=== PATIENT | male | born 1975 | race Caucasian/White ===

== ENCOUNTER 2023-04-14 08:05 | Outpatient (CLI) | payer OTHER, SELFPAY ==
--- NOTE | 2023-04-14 08:25 | US_ITS ---
WS: [id number] ULTRASOUND SOFT TISSUES RIGHT neck. HISTORY: 1.7 CM OVOID DENSITY ON THE R UPPER NECK/? CALCIFIED LYMPH NO COMPARISON: None available. TECHNIQUE: 2-D and color Doppler imaging is submitted. Prior imaging study which revealed possible mass along the RIGHT neck is not available for review. Along the anterior RIGHT neck there is a hypoechoic ovoid mass which is very likely a lymph node funmilayo uring 9 x 5 x 16 mm. Normal central fatty hilum. US/US soft tissue head neck [id number] IMPRESSION: 1. No neck mass identified by ultrasound of the benign-appearing lymph node. 2. The prior imaging study that initiated this examination is not available fo r review. That study was likely performed at another institution.
== END 2023-04-14 08:06 | disposition home or self-care (01) ==
PROVIDERS: PCP Nurse Practitioner; Visit Provider Nurse Practitioner
DX: R22.1 Localized swelling, mass and lump, neck (principal)
CPT/HCPCS: 76536

== ENCOUNTER → 2023-07-27 09:46 | Outpatient (BNVA) | payer OTHER, SELFPAY | PROVIDERS: PCP Nurse Practitioner; Visit Provider Internal Medicine Rheumatology | DX: Z79.899 Other long term (current) drug therapy (principal); M19.90 Unspecified osteoarthritis, unspecified site; Z11.59 Encounter for screening for other viral diseases; M45.6 Ankylosing spondylitis lumbar region; Z11.1 Encounter for screening for respiratory tuberculosis; M48.10 Ankylosing hyperostosis [Forestier], site unspecified; M25.50 Pain in unspecified joint; K75.81 Nonalcoholic steatohepatitis (NASH); M54.50 Low back pain, unspecified; G89.29 Other chronic pain | CPT/HCPCS: 72072; 72100; 72202; 73130; 80076; 82565; 85025; 85651; 86140; 86200; 86431; 86480; 86704; 86803; 86812; 87340; 99204 ==

== ENCOUNTER → 2023-07-28 08:57 | Outpatient (BNVA) | payer OTHER, SELFPAY | PROVIDERS: PCP Nurse Practitioner; Referring Provider Internal Medicine Rheumatology; Visit Provider Specialist | DX: G56.21 Lesion of ulnar nerve, right upper limb (principal) | CPT/HCPCS: 95911 ==

== ENCOUNTER 2023-08-20 07:07 | Outpatient (CLI) | payer OTHER, SELFPAY ==
--- NOTE | 2023-08-20 07:13 | US_ITS ---
WS: [id number] Complete ABDOMINAL ULTRASOUND HISTORY: H/O CIRRHOSIS COMPARISON: None available. Liver: 15.5 cm in length. Normal size liver and echogenicity. No bile duct dilatation or mass. Portal Vein: Normal hepatopetal flow with monophasic waveform. Gallbladder: Normally distended gallbladder with stones. No wall thickening or pericholecystic fluid. CBD: 0.4 cm Pancreas: Obscured. Not well visualized. Right kidney: 10.1 cm x 4.9 x 5.0 cm. Cortex: 1.2 cm. Normal size and echogenicity. No hydronephrosis or mass. Left kidney: 9.9 cm x 5.2 cm x 4.9 cm. Cortex: 1.3 cm. Normal size kidney. Central parapelvic cyst measures 2.5 x 2.8 x 2.7 cm. Spleen: 15.3 cm in length. Spleen is enlarged. No mass. Aorta and IVC: Unremarkable abdominal aorta and IVC. Impression: 1. Cholelithiasis without acute cholecystitis. 2. Moderately enlarged spleen at 15.3 cm in length.
== END 2023-08-20 07:08 | disposition home or self-care (01) ==
PROVIDERS: PCP Nurse Practitioner; Visit Provider Nurse Practitioner
DX: K80.20 Calculus of gallbladder without cholecystitis without obstruction (principal); R16.1 Splenomegaly, not elsewhere classified; K74.60 Unspecified cirrhosis of liver
CPT/HCPCS: 76700

== ENCOUNTER → 2023-09-21 09:52 | Outpatient (BNVA) | payer OTHER, SELFPAY | PROVIDERS: PCP Nurse Practitioner; Referring Provider Nurse Practitioner; Visit Provider Surgery | DX: K80.20 Calculus of gallbladder without cholecystitis without obstruction (principal) | CPT/HCPCS: 99203 ==

== ENCOUNTER → 2023-10-13 12:33 | Outpatient (BNVA) | payer OTHER, SELFPAY | PROVIDERS: PCP Nurse Practitioner; Visit Provider Internal Medicine Rheumatology | DX: M25.50 Pain in unspecified joint (principal); K75.81 Nonalcoholic steatohepatitis (NASH); M54.50 Low back pain, unspecified; G89.29 Other chronic pain; M19.90 Unspecified osteoarthritis, unspecified site | CPT/HCPCS: 99214 ==

== ENCOUNTER 2024-02-15 06:35 | Emergency (ER) | payer OTHER, SELFPAY ==
[2024-02-15 06:39] VITALS: BP 150/89; PULSE 81; RESP 20; TEMP 37.1; O2SAT 98; BMI 33.6
--- NOTE | 2024-02-15 06:41 | XR_ITS ---
WS: [id number] Examination: XR knee RT 3V* [id number] Reason for Exam: pain Date: February 15, 2024 Comparison: None. Findings: The bone density is generally maintained. There is no destruction. There is no displaced fracture or dislocation. A small joint effusion is present. The joint spaces are not significantly narrowed. Marginal and patellar osteophytes are identified. Ch ondrocalcinosis is present. There is partial bony fusion between the fibular head and lateral tibia. Impression: There is no fracture or acute bony abnormality Arthritic changes are present with marginal spurring and chondrocalcinosis. Partial bony fusion of th e fibular head and lateral tibial are noted.
--- NOTE | 2024-02-15 06:50 | W.ED.EXTPRO ---
HPI - Extremity Problem General: Chief complaint: Extremity Problem,Nontraumatic Stated complaint: pain in R Knee Time Seen by Provider: 02/15/24 06:41 Source: patient Mode of arrival: ambulatory History of Present Illness: 48-year-old male presents emergency room with complaint of right knee pain. He states he has a history of gout he was seen yesterday at [facility] for right knee pain. He was given a steroid shot and a prescription for steroids.. Patient localizes pain to the lateral aspect of the right knee. No recent trauma or injury no previous surgery to the affected knee. He has not noticed any swelling of the joint. He has not had any fever sweats or chills. Palpation and weightbearing worsen rest improves although he states it is difficult to find a comfortable position for the knee. MD Complaint: joint pain Onset (ago): day(s) Pain Consistency: constant Location: right and knee Relieving factors: nothing Exacerbating factors: range of motion and palpation Associated symptoms: Deny chest pain, fever(s) or rash Review of Systems Const: Denies: fever(s) or chills Card: Denies: chest pain Resp: Denies: dyspnea GI: Denies: abdominal pain : Denies: dysuria, urinary frequency or urinary urgency Musc: Denies: neck pain or back pain Skin/Breast: Denies: rash PFSH ED PFSH: Medical History Inflammatory arthritis Chronic low back pain Polyarthralgia Joint pain Cirrhosis of liver SCHROEDER (nonalcoholic steatohepatitis) Gout Chronic pain syndrome Insomnia Osteoarthritis GERD (gastroesophageal reflux disease) No pertinent past medical history Surgical History History of appendectomy H/O gastric bypass History of tonsillectomy No pertinent past surgical history Family History Other Cancer Chronic kidney disease (CKD) Hyperlipidemia Hypertension Lung disease Stroke Denies family history of Rheumatoid arthritis Diabetes Lupus CAD (coronary artery disease) Social History Alcohol intake: never Substance/Drug Use: current Physical Exam Const: GENERAL APPEARANCE: cooperative and comfortable ORIENTATION/CONSCIOUSNESS: Yes awake, Yes oriented to person, Yes oriented to place and Yes oriented to time HENMT: COMMON NORMALS: normocephalic, atraumatic and hearing grossly normal bilaterally HEAD & SCALP: normocephalic and atraumatic Resp: COMMON NORMALS: normal respiratory effort, No retractions, No use of accessory muscles and clear to auscultation bilaterally AUSCULTATION: clear to auscultation bilaterally Cardio: COMMON NORMALS: regular rate, regular rhythm and No murmurs present (Cardio) RATE: regular rate RHYTHM: regular rhythm Extremity: OTHER: Examination of the right knee no joint effusion no laxity. Patient has significant discomfort of motion through the knee localizes pain to palpation of the lateral collateral ligament but no laxity of this ligament. No redness or erythema. No pain with palpation to the other portions of the knee joint. Negative Homans no pain in the medial thigh with palpation. Dorsal and plantar flexion 5 of 5 neurovascularly intact dorsalis pedis posterior tibialis pulse palpable Neuro: SENSORIUM/ORIENTATION: Yes oriented to person, Yes oriented to place and Yes oriented to time Skin: COMMON NORMALS: no rashes or lesions noted GENERAL SKIN EXAM: no rashes or lesions noted Course Vital Signs: Vital signs: Vital Signs Temperature 98.8 F 02/15/24 06:39 Pulse Rate 81 02/15/24 06:39 Respiratory Rate 20 H 02/15/24 06:39 Blood Pressure 150/89 02/15/24 06:39 Pulse Oximetry 98 02/15/24 06:39 Oxygen Delivery Me thod Room Air 02/15/24 06:39 MDM - Extremity (Nontraumatic) Medical Decision Making No acute findings on the x-ray. On exam patient has very little specific area of pain along the lateral collateral ligament. There is no joint redness or inflammation he has no fever no sign of joint infection. No significant swelling no calf pain or thigh pain suggestive of DVT.neurovascularly intact. No sign of radiculopathy. He has been treated with steroids but this began yesterday clinically I do not suspect gout although it is not completely ruled out. But with that partially treated with steroids it is possible. There is no history of trauma. He did report significant improvement when he was given ketorolac. Will discharge home with indomethacin. Discussed with the patient to use as needed and to be careful to take with food because he is if he is taking both the steroid and the indomethacin that can be very hard on the stomach. Recheck if he is not improving return if is further problem if persists may need to follow-up with his primary care doctor for advanced imaging if felt appropriate Medical Records I reviewed the patient's medical records. Lab Data I reviewed the patient's lab results. All radiology interpretation(s) finalized by discharge Discharge Plan Discharge Patient Disposition: Home Clinical Impression: Knee pain, right Condition: Stable Prescriptions: New indomethacin 50 mg capsule 50 mg PO TID Qty: 21 0RF Rx Instructions: administer with food or milk Discontinued meloxicam 15 mg tablet 15 mg PO DAILY No Action omeprazole 20 mg capsule,delayed release(DR/EC) 20 mg PO DAILY gabapentin 300 mg capsule 300 mg PO DAILY duloxetine 60 mg capsule,delayed release(DR/EC) 60 mg PO DAILY multivitamin Tablet 1 tab PO DAILY prednisone 20 mg tablet See Rx Instructions PO .COMPLEX PRN (Reason: joint pain flare) Qty: 30 1RF Rx Instructions: take 2 daily for 7 days PRN joint pain flare PO PRN; hydroxychloroquine 200 mg tablet 200 mg PO BID Qty: 180 1RF Discharge Orders: Discharge ED (Routine); Ordered 02/15/24 Ordered By: Beck Falcon Referrals: Erika Hartmann FNP [Primary Care Provider] - Discharge Diet: Usual diet Discharge Activity: Increase activity as tolerated Patient Instructions: Opioid Safety, Pain Management Activity Restrictions/Additional Instructions: Thank you for choosing [facility] for your healthcare needs today. Please realize this is an emergency room and that we are providing you with a medical screening exam and this may not be complete and all inclusive of all the testing and or work up that you may need to determine your ailment or severity of your illness. It is very important that you follow up as instructed or that you return to the Emergency Department should you have concerns or if your condition changes or worsens in any way. You are seen today for knee pain. X-ray did not show any acute fractures. Since you are partially treated with steroids may potentially be a gouty arthritis however based on your clinical exam it does not appear so. He did have relief with the ketorolac given in the emergency room you are given a prescription for indomethacin to use as needed. Would recommend you continue to complete the steroid taper. There is no sign of infection at the time you were seen.. Return to the emergency room if you have further problems. Otherwise follow-up with your primary care doctor if pain persists you may need advanced imaging. Coding Level of Care Code ED Police Crime Scene Technician for Dejah Rust
[2024-02-15] MEDS: ketorolac 30 mg/mL INJ IVP (07:10)
== END 2024-02-15 07:36 | disposition home or self-care (01) ==
PROVIDERS: Emergency Provider Family Medicine; PCP Nurse Practitioner
DX: M25.561 Pain in right knee (principal)
CPT/HCPCS: 73562; 96374; 99284; J1885

== ENCOUNTER 2024-02-23 03:24 | Emergency (ER) | payer OTHER, SELFPAY ==
[2024-02-23 03:31] VITALS: BP 138/94; PULSE 65; RESP 18; TEMP 36.4; O2SAT 95; BMI 32.1
--- NOTE | 2024-02-23 04:11 | XRR_ITS ---
PROCEDURE INFORMATION: Exam: XR Left Wrist Exam date and time: 02/23/2024 4:15 AM Age: 48 years old Clinical indication: Patient HX: C/O left wrist pain. No injury. ; Additional info: Pain/swelling TECHNIQUE: Imaging protocol: Radiologic exam of the left wrist. Views: 3 or more views. COMPARISON: No relevant prior studies available. FINDINGS: Bones/joints: There is no acute fracture or dislocation. If symptoms persist, follow-up imaging in several days may be useful to exclude an occult or subtle fracture. Mild arthritic changes seen throughout the wrist. Soft tissues: No visible/definite radiopaque soft tissue foreign body. XR/XR wrist LT min 3V* [id number] IMPRESSION: No acute fracture or dislocation.
[2024-02-23] MEDS: HYDROcodone-acetaminophen 10-325 mg Tablet 2 TAB PO (04:24)
[2024-02-23] MEDS: ketorolac 60 mg/2 mL INJ IM (04:24)
--- NOTE | 2024-02-23 04:35 | W.ED.EXTPRO ---
HPI - Extremity Problem General: Chief complaint: Extremity Problem,Nontraumatic Stated complaint: Left Wrist Pain Time Seen by Provider: 02/23/24 03:36 History of Present Illness: 48-year-old male presents emerged part with complaints of left wrist pain. He states that he woke up yesterday and started having 7 out of 10 sharp stabbing pain. He states that his continued get worse throughout the afternoon and night. He states he does have an appointment to see his [facility] physician in [place] later today and states that he just needed something for the pain to until he can be seen by his primary care provider. He states the left wrist is slightly swollen. He denies numbness or tingling to the extremity. He states he has not had difficulty like this in the past. He states he is unaware of any recent injury or trauma. Review of Systems General: Reports: 10 or more systems reviewed and unremarkable except in HPI and below Musc: Reports: extremity pain and extremity swelling [facility] ED PFSH: Medical History Inflammatory arthritis Chronic low back pain Polyarthralgia Joint pain Cirrhosis of liver SCHROEDER (nonalcoholic steatohepatitis) Gout Chronic pain syndrome Insomnia Osteoarthritis GERD (gastroesophageal reflux disease) No pertinent past medical history Surgical History History of appendectomy H/O gastric bypass History of tonsillectomy No pertinent past surgical history Family History Other Cancer Chronic kidney disease (CKD) Hyperlipidemia Hypertension Lung disease Stroke Denies family history of Rheumatoid arthritis Diabetes Lupus CAD (coronary artery disease) Social History Alcohol intake: never Substance/Drug Use: current Physical Exam Narrative: EXAM NARRATIVE: Constitutional: the patient appears well nourished and of normal development. Vital signs as documented. No acute distress at present. Alert and oriented-to person, place, time and situation. Head, eyes, ears, nose, mouth, throat: Normocephalic, atraumatic. Pupils-equal, round, reactive to light. No scleral icterus. Normal-appearing external ears. Normal appearing nasal turbinates, no drainage. No obvious oral lesions. Neck: Supple, trachea is midline, no lymphadenopathy, no jugular venous distension, thyromegaly, or carotid bruits. Carotid upstrokes are brisk bilaterally. Lungs: clear to auscultation to all lung damon. Symmetrical rise and fall of chest, no obvious signs of increased work of breathing at present. Cardiac: Regular rate and rhythm, positive S1, S2. No murmurs, rubs or gallops that I can appreciate Abdomen: Soft, non-tender to palpation, normal active bowel sounds to all quadrants. No palpable masses, no organomegaly and abdominal bruits. Extremities: 2+ pulses in the upper extremities that are equal bilaterally, 2+ pulses in the lower extremities that are equal bilaterally. Moves all extremities well, sensation to all extremities are noted. Patient's left wrist is slightly edematous, he does have normal flexion and extension. He is nontender to palpation to the anatomical snuffbox. He does have tenderness to palpation to the medial aspect of the left wrist and the area of the ulnar styloid. Capillary refill is less than 3 seconds in all extremities. He is neurovascularly intact to all extremities. Skin: Warm, dry, intact. Course ED course: I reviewed the radiographic examination and determined the need for stabilization via splint. A left wrist splint was utilized. The splint was ordered and placed by the nursing staff, under the direct supervision of myself (ER Physician. The patient's neurovascular status was evaluated and was intact before and after the application of the splint. Capillary refill was less than 3 seconds before and after the application. The patient was splinted and the most appropriate anatomical and functional position at that time. Anticipatory guidance, return precautions and red flag precautions were provided to the patient and support person. The patient/support person was advised to contact the patient's primary care provider or Orthopedic provider to make a follow-up appointment for additional evaluation and treatment within the next 3-5 days. Vital Signs: Vital signs: Vital Signs Temperature 97.5 F L 02/23/24 05:09 Pulse Rate 65 02/23/24 05:09 Respiratory Rate 18 02/23/24 05:09 Blood Pressure 138/94 02/23/24 05:09 Pulse Oximetry 95 02/23/24 05:09 Oxygen Delivery Me thod Room Air 02/23/24 03:31 MDM - Extremity (Nontraumatic) Medical Decision Making Physical exam completed and documented, I did provide the patient intramuscular Toradol and by mouth 10/325 [place] as well as a Velcro wrist splint and a x-ray of his left wrist. Medical Records I reviewed the patient's medical records. Lab Data Radiology Impressions Wrist X-Ray 02/23/24 04:11 IMPRESSION: No acute fracture or dislocation. All radiology interpretation(s) finalized by discharge Discharge Plan Discharge Patient Disposition: Home Clinical Impression: Acute pain of left wrist, Swelling of left wrist Condition: Stable Prescriptions: No Action omeprazole 20 mg capsule,delayed release(DR/EC) 20 mg PO DAILY gabapentin 300 mg capsule 300 mg PO DAILY duloxetine 60 mg capsule,delayed release(DR/EC) 60 mg PO DAILY multivitamin Tablet 1 tab PO DAILY prednisone 20 mg tablet See Rx Instructions PO .COMPLEX PRN (Reason: joint pain flare) Qty: 30 1RF Rx Instructions: take 2 daily for 7 days PRN joint pain flare PO PRN; hydroxychloroquine 200 mg tablet 200 mg PO BID Qty: 180 1RF indomethacin 50 mg capsule 50 mg PO TID Qty: 21 0RF Rx Instructions: administer with food or milk Discharge Orders: Discharge ED (Routine); Ordered 02/23/24 Ordered By: Addy Haas Referrals: Erika Hartmann, GROUP SALES COORDINATOR [Primary Care Provider] - Discharge Diet: Usual diet Discharge Activity: Limit activity as instructed Patient Instructions: Opioid Safety, Pain Management Activity Restrictions/Additional Instructions: Activity Restrictions/Additional Instructions: Thank you for choosing [facility] for your healthcare needs today. Please realize that you were seen in the Emergency Department and that we are providing you with an emergency medical screening exam and this may not be a complete and all inclusive of all the testing and or medical work-up that you may need to determine your ailment or severity of your illness. It is very important that you follow-up as instructed with your Primary care provider or Specialist for additional evaluation and to discuss your medical treatment plan. Coding Level of Care Code ED House Detective for Dejah Rust
[2024-02-23 05:09] VITALS: BP 138/94; PULSE 65; RESP 18; TEMP 36.4; O2SAT 95
== END 2024-02-23 05:00 | disposition home or self-care (01) ==
PROVIDERS: Emergency Provider Internal Medicine; PCP Nurse Practitioner
DX: M25.532 Pain in left wrist (principal); M79.89 Other specified soft tissue disorders
CPT/HCPCS: 73110; 96372; 99284; J1885

== ENCOUNTER → 2024-03-23 08:31 | Outpatient (BNVA) | payer OTHER, SELFPAY | PROVIDERS: PCP Nurse Practitioner; Visit Provider Surgery | DX: Z12.11 Encounter for screening for malignant neoplasm of colon (principal) | CPT/HCPCS: 99213 ==

== ENCOUNTER 2024-03-24 11:42 | Outpatient (CLI) | payer OTHER, SELFPAY ==
--- NOTE | 2024-03-24 11:52 | MR_ITS ---
WS: [id number] MRI RIGHT KNEE NONCONTRAST TECHNIQUE: Axial PD, coronal PD fat sat, coronal PD, sagittal PD, and sagittal PD fat-sat images obta ined. CLINICAL INFORMATION: SWELLING AND PAIN COMPARISON: None. FINDINGS: Moderate tricompartmental arthritis advanced for patient this age. Hypertrophic changes along the tierra nt line. Distal quadriceps and patella tendons are intact. Hypertrophic patella. ACL and PCL appear i ntact. Advanced chondromalacia patella with subchondral edema and cystic change involving the lateral patellar facet. Normal medial and lateral patellar retinaculum. Chondral fissuring involving the posterolateral femoral condyle with a small chondral defect. No unde rlying edema. Partial-thickness chondral defect involving the medial femoral condyle. Grade 3 chondro malacia involving the medial and lateral compartments with chronic narrowing. Medial collateral ligam ent is intact. Chronic intrasubstance signal normality involving the medial and lateral meniscus. No acute appearing meniscal tears. Peripheral extrusion of the lateral meniscus. Edema with advanced subchondral cystic change involving the tibiofibular joint with small lobulated ganglion cysts in this area. Lateral co llateral ligament appears intact. Biceps femoris appears intact. Small amount of and edema deep to th e lateral collateral ligament compatible with grade 1-2 injury. Distal LCL appears intact. Chronic ap pearing partial tear of the popliteus with diffuse intrasubstance signal normality. Tiny popliteal cy st. MR/MR knee RT wo con* [id number] IMPRESSION: 1. Moderate tricompartmental arthritis advanced for patient this age. 2. ACL and PCL appear intact. 3. Advanced degenerative changes tibiofibular articulation with subchondral cy stic change and small lobulated ganglion cysts 4. Grade 1-2 injury involving the lateral collateral ligament with fluid and e rizwan deep to the LCL. 5. Chronic appearing tear with diffuse intrasubstance signal normality involvi ng the popliteus fibers. 6. Advanced chondromalacia patella with subchondral edema and cystic change in volving the lateral patellar facet Outbridge grading: grade III: partial-thickness cartilage loss with focal ulcer ation
== END 2024-03-24 11:43 | disposition home or self-care (01) ==
LOC: RAD 11:45
PROVIDERS: PCP Nurse Practitioner; Visit Provider Nurse Practitioner
DX: M25.561 Pain in right knee (principal); M17.11 Unilateral primary osteoarthritis, right knee; M22.41 Chondromalacia patellae, right knee
CPT/HCPCS: 73721

== ENCOUNTER 2024-05-13 07:15 | Outpatient (CLI) | payer OTHER, SELFPAY ==
--- NOTE | 2024-05-13 07:24 | US_ITS ---
WS: [id number] Complete ABDOMINAL ULTRASOUND HISTORY: HCC SURVEILLANCE COMPARISON: 08/20/2023 Liver: 14.5 cm in length. Mild coarse echotexture. Surface of the liver is irregular and nodular. No hepatic mass or bile duct dilatation. Portal Vein: Normal hepatopetal flow with monophasic waveform. Gallbladder: Normally distended with cholelithiasis. No wall thickening or evidence for acute cholecy stitis at this time. CBD: 0.3 cm Pancreas: Poorly visualized. Right kidney: 10.2 cm x 4.3 x 4.9 cm. Cortex:0.9 cm. Normal size and echogenicity. No hydronephrosis or mass. Left kidney: 9.6 cm x 4.3 cm x 3.8 cm. Cortex: 0.9 cm. Normal size kidney. Reidentified is a hypoechoic mass with through transmission noted in the mid kidn ey. Mass measures 2.4 x 2.6 x 2.6 cm and is similar in size and appearance as 08/20/2023. This is prob ably a cyst but difficult to completely characterize due to its position within the kidney and abdome n. Spleen: 12.6 cm. Spleen measures slightly less in size as compared to the prior study. Aorta and IVC: Unremarkable abdominal aorta and IVC. US/US abdomen complete* [id number] Impression: 1. Cirrhotic appearing liver. No mass or bile duct dilatation. 2. Cholelithiasis without acute cholecystitis. 3. Reidentified is the hypoechoic mass in the LEFT kidney measuring 2.4 x 2.6 x 2.6 cm. Favor this is probably a cyst but difficult to completely characteriz e due to its position and internal echoes. No increase in size since 08/20/2023.
== END 2024-05-13 07:21 | disposition home or self-care (01) ==
PROVIDERS: PCP Nurse Practitioner; Visit Provider Nurse Practitioner
DX: N28.89 Other specified disorders of kidney and ureter (principal); K80.20 Calculus of gallbladder without cholecystitis without obstruction
CPT/HCPCS: 76700

== ENCOUNTER 2024-05-17 08:03 | Day surgery (SDC) | payer OTHER, SELFPAY ==
[2024-05-17 08:41] VITALS: BP 139/99; PULSE 80; RESP 17; TEMP 36.6; O2SAT 98; BMI 33.2
[2024-05-17] MEDS: sodium chloride 0.9% 1,000 ML 30 ML IV (08:53)
--- NOTE | 2024-05-17 09:12 | W.PM.OPSFHP ---
Same Day Surgery H&P Indication for Procedure/HPI DATE OF PROCEDURE: May 17, 2024 CHIEF COMPLAINT/INDICATIONFOR SURGICAL PROCEDURE: need for screening colonoscopy PREOP DIAGNOSIS: need for screening colonoscopy PLANNED PROCEDURE: Operation Date: 05/17/24 09:45 Proposed Procedures p Colonoscopy 45319, G0121, Z12.11(Not Applicable) - Cuauhtemoc Mansfield MD Medications/Allergies* Home Medications Medication Instructions Recorded Confirmed Type gabapentin 300 mg capsule 300 mg PO DAILY 01/08/23 05/12/24 History omeprazole 20 mg capsule,delayed 20 mg PO DAILY 01/08/23 05/12/24 History release duloxetine 60 mg capsule,delayed 60 mg PO DAILY 07/27/23 05/12/24 History release multivitamin 1 tab PO DAILY 07/27/23 05/12/24 History indomethacin 50 mg capsule 50 mg PO TID PRN gout 05/12/24 05/17/24 History Allergies/Adverse Reactions Allergy/AdvReac Type Severity Reaction Status Date / Time No Known Allergies Allergy Verified 05/12/24 10:04 Current Medications: Generic Name Dose Route Start Last Admin Trade Name Freq PRN Reason Stop Dose Admin Sodium Chloride 1,000 mls @ 30 mls/hr 05/17/24 08:15 05/17/24 08:53 Sodium Chloride 0.9% IV 05/18/24 08:14 30 mls/hr .Q24H JACE Administration Pertinent History/Comorbid Conditions* Medical History (Updated 03/02/24 @ 00:01 by NICKI Sesay) Inflammatory arthritis Chronic low back pain Polyarthralgia Joint pain Cirrhosis of liver SCHROEDER (nonalcoholic steatohepatitis) Gout Chronic pain syndrome Insomnia Osteoarthritis GERD (gastroesophageal reflux disease) No pertinent past medical history Surgical History (Updated 07/27/23 @ 11:16 by Naveed Fall MD) History of appendectomy H/O gastric bypass History of tonsillectomy No pertinent past surgical history Family History (Updated 07/27/23 @ 10:33 by Sophia Castañeda LPN) Hyperlipidemia Chronic kidney disease (CKD) Lung disease Cancer Hypertension Stroke Denies family history of Rheumatoid arthritis Diabetes Lupus CAD (coronary artery disease) Social History Alcohol intake: never Substance/Drug Use: current Pertinent Exam Findings alert, oriented x 3 and clear to auscultation bilaterally Recommendations Surgery/Procedure today Coding Level of Care Code Acute Code for Chg Fwd
--- NOTE | 2024-05-17 09:17 | ANES.PREANE2 ---
Pre-Anesthetic Assessment Height/Weight: Height 1.7 m Weight 96.162 kg Temp Pulse Resp BP Pulse Ox O2 Del Method 97.8 F 80 17 139/99 98 Room Air 05/17/24 08:41 05/17/24 08:41 05/17/24 08:41 05/17/24 08:41 05/17/24 08:41 05/17/24 08:41 Preop Diagnosis: need for screening colonoscopy Operation Date: 05/17/24 09:45 Proposed Procedures p Colonoscopy 57340, G0121, Z12.11(Not Applicable) - Cuauhtemoc [place] MD Was Beta Jose M taken within 24 hours: N/A Was Clonidine taken within 24 hours: N/A Last intake: Intake Last Liquid Date 05/16/24 Last Liquid Time 18:00 Last Solid Date 05/15/24 Last Solid Time 16:00 Social recreational marijuana Exam alert and oriented x 3 Airway Submandibular: within normal limits Cervical ROM: within normal limits Mallampati: Class III Dentition: other (missing lower right) Pulmonary None reported CV/HEM None reported None reported Hepatic Cirrhosis GI Gastroesophageal Reflux Disease (medication controlled) Metabolic None reported Musc/skel Lower Back Pain inflammatory arthritis Neuropsych Anxiety and Depression Anesthetic Plan ASA status: 2 Anesthesia: MAC Risk of > 500 ml blood loss (7ml/kg in children): No Medications/Allergies Home Medications Medication Instructions Recorded Confirmed Last Taken Type gabapentin 300 mg capsule 300 mg PO DAILY 01/08/23 05/12/24 05/15/24 History omeprazole 20 mg capsule,delayed 20 mg PO DAILY 01/08/23 05/12/24 05/15/24 History release duloxetine 60 mg capsule,delayed 60 mg PO DAILY 07/27/23 05/12/24 05/15/24 History release multivitamin 1 tab PO DAILY 07/27/23 05/12/24 05/12/24 History hydroxychloroquine 200 mg tablet 200 mg PO BID #180 tabs 10/13/23 05/12/24 05/15/24 Rx prednisone 20 mg tablet See Rx Instructions PO .COMPLEX 10/13/23 05/12/24 05/12/24 Rx PRN joint pain flare #30 tabs indomethacin 50 mg capsule 50 mg PO TID PRN gout 05/12/24 05/17/24 05/15/24 History Allergies Allergy/AdvReac Type Severity Reaction Status Date / Time No Known Allergies Allergy Verified 05/12/24 10:04 Current Medications Generic Name Dose Route Start Last Admin Trade Name Bryanq PRN Reason Stop Dose Admin Sodium Chloride 1,000 mls @ 30 mls/hr 05/17/24 08:15 05/17/24 08:53 Sodium Chloride 0.9% IV 05/18/24 08:14 30 mls/hr .Q24H JACE Administration PFSH Anesthesia Medical History Inflammatory arthritis Chronic low back pain Polyarthralgia Joint pain Cirrhosis of liver SCHROEDER (nonalcoholic steatohepatitis) Gout Chronic pain syndrome Insomnia Osteoarthritis GERD (gastroesophageal reflux disease) No pertinent past medical history Surgical History History of appendectomy H/O gastric bypass History of tonsillectomy No pertinent past surgical history Family History Other Cancer Chronic kidney disease (CKD) Hyperlipidemia Hypertension Lung disease Stroke Denies family history of Rheumatoid arthritis Diabetes Lupus CAD (coronary artery disease) Social History Alcohol intake: never Substance/Drug Use: current Data Anesthesia Cardiac Studies: No Data to Display
[2024-05-17 10:18] VITALS: BP 122/76; PULSE 67; RESP 18; TEMP 36.3; O2SAT 100
[2024-05-17 10:28] VITALS: BP 129/82; PULSE 62; RESP 17; O2SAT 97
--- NOTE | 2024-05-17 14:00 | ANE.PACU2 ---
Inpatient post-anesthesia follow up: Airway intact: Yes Vital signs: Temperature 97.3 F Pulse Rate 62 Respiratory Rate 17 Blood Pressure 129/82 Pulse Oximetry 97 Oxygen Delivery Me thod Room Air Oxygen Flow Rate Fraction of Inspir ed Oxygen Hydration adequate: Yes Nausea and vomiting: No Pain level: 2 Mental status: Baseline
== END 2024-05-17 10:32 | disposition home or self-care (01) ==
PROVIDERS: PCP Nurse Practitioner; Visit Provider Surgery
PROC: 0DJD8ZZ Inspection of Lower Intestinal Tract, Via Natural or Artificial Opening Endoscopic (ICD-10-PCS; CPT 45378; principal; 2024-05-17 09:45)
DX: Z12.11 Encounter for screening for malignant neoplasm of colon (principal); Q27.30 Arteriovenous malformation, site unspecified; M19.90 Unspecified osteoarthritis, unspecified site; Z98.84 Bariatric surgery status
CPT/HCPCS: 45378; J2704; J7030

== ENCOUNTER 2024-06-21 16:07 | Outpatient (CLI) | payer OTHER, SELFPAY ==
--- NOTE | 2024-06-21 16:19 | CT_ITS ---
WS: [id number] CT ABDOMEN WITH AND WITHOUT CONTRAST HISTORY: MASS ON LEFT KIDNEY Multiphase 3 mm axial imaging performed through the abdomen. Oral contrast has not been provided. Cor onal and sagittal reformats are submitted. All CT scans at [facility] use at least one of the se dose optimization techniques: automated exposure control; mA and/or kV adjustment per patient size (includes targeted exams where dose is matched to clinical indication); or iterative reconstruction. IV CONTRAST: Omnipaque 350; 100 mL IV. Oral contrast: No DLP: 1757.56 mGy.cm COMPARISON: Abdomen ultrasound 05/13/2024 Lower thorax: Lung bases are clear. Heart is normal size. Small hiatal hernia. Prior surgery at the G E junction. Liver/biliary system: Normal size with no intrahepatic dilatation. Gallbladder: Cholelithiasis without acute cholecystitis. Pancreas: Normal size pancreas and pancreatic duct. No adjacent inflammation. Spleen: Spleen is very slightly enlarged measuring 14.2 cm in length. Similar to prior ultrasound fro m 08/20/2023. Adrenal glands: Normal. Right kidney: Several nonobstructing renal calcifications measuring 3 to 4 mm. There is no hydronephr osis. No solid mass. There is a too small to characterize low-attenuation mass in the lower pole whic h is probably a cyst. Left kidney: Normal size kidney with numerous nonobstructing 2 to 3 mm calcifications. Reidentified i s a well-circumscribed low-attenuation mass in the inferior medial LEFT kidney. Mass measures 2.5 x 2 .5 x 2.2 cm. Hounsfield units do not increased significantly with IV contrast. Therefore this is a si mple cyst. There is a smaller too small to characterize hypodensity in the lower pole cortex also. Aorta: Mild atherosclerosis with no aneurysm. Lymphadenopathy: None. Free fluid: None. GI tract: As visualized within the abdomen normal. Postsurgical changes are associate the stomach. Pr obably related to a bypass surgery. Proximal small bowel and colon are negative. By history of prior appendectomy. Abdominal wall: Unremarkable abdominal wall. No hernia. Visualized osseous structures: Unremarkable. CT/CT abdomen wo/w con [id number] IMPRESSION: 1. LEFT renal mass along the inferior medial lower pole corresponds to a simpl e cyst. Mass measures 2.5 x 2.5 x 2.2 cm and does not enhance. 2. No solid renal mass or obstruction. 3. Nonobstructing bilateral renal calcifications. 4. Small hiatal hernia. 5. Prior postoperative changes involving the stomach. 6. Cholelithiasis without acute cholecystitis. 7. Mild splenomegaly, stable since 08/20/2023.
[2024-06-21] MEDS: iohexol 350 mg/mL 500 mL Btl (per mL) IV (16:36)
== END 2024-06-21 16:08 | disposition home or self-care (01) ==
LOC: RAD 16:07
PROVIDERS: PCP Nurse Practitioner; Visit Provider Nurse Practitioner
DX: N28.1 Cyst of kidney, acquired (principal); K44.9 Diaphragmatic hernia without obstruction or gangrene; K80.20 Calculus of gallbladder without cholecystitis without obstruction; Z90.49 Acquired absence of other specified parts of digestive tract; N20.0 Calculus of kidney
CPT/HCPCS: 74170; Q9967

== ENCOUNTER 2025-02-27 07:13 | Outpatient (CLI) | payer OTHER, SELFPAY ==
--- NOTE | 2025-02-27 07:19 | US_ITS ---
WS: [id number] RIGHT UPPER QUADRANT ULTRASOUND HISTORY: HX OF CIRRHOSIS COMPARISON: 05/13/2024 Liver: 15.6 cm in length. Coarse echotexture. Surface of the liver is irregular and nodular. There is no intrahepatic mass. Portal Vein: Patent with normal hepatopetal flow. Velocity is decreased. Gallbladder: Normally distended gallbladder. Reidentified is a gallstone at the gallbladder neck. No pericholecystic fluid. CBD: 0.4 cm Pancreas: Normal size and echogenicity. Right kidney: 9.8 cm in length. Normal size and echogenicity. No hydronephrosis or mass. Aorta and IVC: Unremarkable abdominal aorta and IVC. No ascites. US/US abdomen limited [id number] IMPRESSION: 1. Mild early changes of cirrhosis. No intrahepatic mass or dilatation. 2. Cholelithiasis without acute cholecystitis.
== END 2025-02-27 07:14 | disposition home or self-care (01) ==
PROVIDERS: PCP Nurse Practitioner; Visit Provider Nurse Practitioner
DX: Z01.89 Encounter for other specified special examinations (principal); R93.2 Abnormal findings on diagnostic imaging of liver and biliary tract; K80.20 Calculus of gallbladder without cholecystitis without obstruction
CPT/HCPCS: 76705